=== PATIENT | female | born 1990 | race Caucasian/White ===

== ENCOUNTER → 2017-01-19 | Outpatient (CLI) | payer MEDICAID ==
[2014-12-02 00:12] VITALS: BP 119/80
[~2017-01-19] MED LIST: NASONEX0.05 MG/AC NS; TYLENOL 325MG325 M1 PO
== END ==
LOC: LAB 14:59
DX: R35.0 Frequency of micturition (principal); N92.6 Irregular menstruation, unspecified; Z32.02 Encounter for pregnancy test, result negative

== ENCOUNTER → 2017-03-23 | Outpatient (CLI) | payer MEDICAID ==
[2014-12-02 00:12] VITALS: BP 119/80
== END ==
LOC: LAB 16:18
DX: Z00.00 Encounter for general adult medical examination without abnormal findings (principal)

== ENCOUNTER → 2017-08-29 | Outpatient (CLI) | payer MEDICAID ==
[2014-12-02 00:12] VITALS: BP 119/80
== END ==
LOC: RAD 15:01
DX: M25.561 Pain in right knee (principal); W19.XXXA Unspecified fall, initial encounter

== ENCOUNTER → 2017-09-05 | Outpatient (CLI) | payer MEDICAID ==
[2014-12-02 00:12] VITALS: BP 119/80
== END ==
LOC: LAB 13:58
DX: N91.2 Amenorrhea, unspecified (principal)

== ENCOUNTER → 2018-01-29 | Outpatient (CLI) | payer OTHER, MEDICAID ==
[2014-12-02 00:12] VITALS: BP 119/80
== END ==
LOC: RAD 15:39
DX: M25.572 Pain in left ankle and joints of left foot (principal)

== ENCOUNTER → 2018-05-17 | Outpatient (CLI) | payer SELFPAY ==
[2014-12-02 00:12] VITALS: BP 119/80
[2018-05-17 14:08] LABS: URINE MUCUS PRESENT (NOT PRESENT)
== END ==
LOC: LAB 12:39
PROVIDERS: Nurse Practitioner Family
DX: R10.9 Unspecified abdominal pain (principal)

== ENCOUNTER → 2019-05-22 | Outpatient (CLI) | payer MEDICAID ==
[2014-12-02 00:12] VITALS: BP 119/80
[2019-05-22 11:20] LABS: URINE APPEARANCE HAZY; URINE COLOR YELLOW
[2019-05-22 11:21] LABS: URINE BILIRUBIN NEGATIVE (NEGATIVE); URINE BLOOD TRACE (NEGATIVE); URINE GLUCOSE NEGATIVE (NEGATIVE); URINE KETONE NEGATIVE (NEGATIVE); URINE LEUKOCYTE ESTERASE TRACE (NEGATIVE); URINE MUCUS PRESENT (NOT PRESENT); URINE NITRATE NEGATIVE (NEGATIVE); URINE PROTEIN(semi-quant) NEGATIVE (NEGATIVE); URINE UROBILINOGEN NORMAL (NORMAL)
== END ==
LOC: LAB 11:01
PROVIDERS: Internal Medicine
DX: N30.00 Acute cystitis without hematuria (principal)

== ENCOUNTER 2019-07-18 18:37 | Emergency (ER) | payer MEDICAID ==
[~2019-07-18] VITALS: Ht 157.5 cm; Wt 95.5 kg
[2019-07-18 19:36] LABS: EOS # 0.2 (0.04-0.40); EOS % 1.7 % (1.0-5.0); HEMATOCRIT 41.1 % (37.0-47.0); HEMOGLOBIN 13.4 g/dL (12.5-16.0); LYMPH# 3.5 (1.50-4.00); MEAN CELL VOLUME 81 fl (78-100); MEAN CORPUSCULAR HEMOGLOBIN 26 pg (27-31); MEAN CORPUSCULAR HGB CONC 33 g/dL (33-37); MEAN PLATELET VOLUME 11.1 fl (7.4-10.4); MONO # 0.7 (0.20-0.80); NEU # 6.2 (1.40-6.50); PLATELET COUNT 266 K/mm3 (130-400); RED BLOOD COUNT 5.09 M/mm3 (4.10-5.30); RED CELL DISTRIBUTION WIDTH 13.3 % (11.5-14.5); WHITE BLOOD COUNT 10.6 K/mm3 (4.8-10.8)
[2019-07-18 19:44] LABS: POTASSIUM 3.5 mmol/L (3.5-5.1)
[2019-07-18 19:45] LABS: CALCIUM 9.6 mg/dL (8.3-10.5)
[2019-07-18 19:46] LABS: TOTAL PROTEIN 7.2 g/dL (6.4-8.3)
[2019-07-18 19:48] LABS: TOTAL BILIRUBIN 0.3 mg/dL (0.2-1.2)
[2019-07-18 22:35] VITALS: BP 143/104
== END 2019-07-18 22:35 | disposition home or self-care (01) ==
LOC: ED 18:37
PROVIDERS: Nurse Practitioner Family
DX: N83.201 Unspecified ovarian cyst, right side (principal); R16.2 Hepatomegaly with splenomegaly, not elsewhere classified
CPT/HCPCS: J1885; J2405; J7030; Q9967

== ENCOUNTER → 2020-07-07 | Outpatient (CLI) | payer MEDICAID | LOC: RAD 19:21 | DX: S69.90XA Unspecified injury of unspecified wrist, hand and finger(s), initial encounter (principal) ==

== ENCOUNTER 2021-04-03 16:47 | Emergency (ER) | payer MEDICAID ==
[~2021-04-03] VITALS: Ht 157.5 cm; Wt 97.7 kg
[2021-04-03] MEDS ORDERED: MELATONIN5 M6 PO (17:01)
[2021-04-03 19:12] VITALS: BP 137/98
== END 2021-04-03 19:12 | disposition home or self-care (01) ==
LOC: ED 16:47
DX: M54.12 Radiculopathy, cervical region (principal); G89.29 Other chronic pain; M54.9 Dorsalgia, unspecified

== ENCOUNTER → 2023-11-14 | Outpatient (CLI) | payer MEDICAID ==
[~2023-11-14] MED LIST changes: +MELATONIN5 M6 PO
== END ==
LOC: RAD 09:04
DX: M79.645 Pain in left finger(s) (principal)